=== PATIENT | female | born 1995 | race Caucasian/White ===

== ENCOUNTER 2016-08-02 19:37 | Outpatient (CLI) | payer OTHER ==
[~2016-08-02] VITALS: Ht 157.5 cm; Wt 66.6 kg
[~2016-08-02 19:37] MED LIST: CEPH-443 PO; IBUP-1542
[2016-08-02 20:19] VITALS: BP 101/65; PULSE 90; RESP 18
[2016-08-02] MEDS ORDERED: PRENAT PO (20:21)
[2016-08-02 21:33] LABS: ADD UMIC NO; URINE BILIRUBIN (Dip) NEGATIVE (NEGATIVE); URINE BLOOD (Dip) NEGATIVE (NEGATIVE); URINE COLOR LT. YELLOW (YELLOW); URINE GLUCOSE (Dip) NEGATIVE (NEGATIVE); URINE KETONES (Dip) NEGATIVE (NEGATIVE); URINE LEUKOCYTE ESTERASE (Dip) NEGATIVE (NEGATIVE); URINE NITRITE (Dip) NEGATIVE (NEGATIVE); URINE TOTAL PROTEIN (Dip) NEGATIVE (NEGATIVE); URINE UROBILINOGEN (Dip) 0.2 E.U./dL (0.1-1.0)
--- NOTE | 2016-08-02 22:34 | TRIAGE ---
OB Triage Datetime Report Generated by CPN: 08/02/2016 22:33 Datetime: 08/02/2016 20:15 Time of Arrival: 08/02/2016 19:33 EGA: 20.4 Arrived By: Ambulatory Arrived From: Home Chief Complaint: w/ hx c/s x1 w/ c/o cramping. Denies hx problems this pregnany Movement: Present Contractions: Irregular Time Contractions Began: 08/02/2016 10:00 Contractions: Q5-10 Rupture of Membranes: Denies Vaginal Bleeding: None Vaginal Discharge: Denies Recent Sexual Intercouse: Denies Abdominal Trauma: Not Applicable Patient Complaints: Cramping Time Provider Notified: 08/02/2016 21:05 Provider Notified: Dr Lee Initial Plan: EFM Datetime: 08/02/2016 20:05 Vaginal Exam Membrane Status: Intact Datetime: 08/02/2016 19:56 Maternal Assessment Level of Consciousness: Fully Conscious Headache: Denies Blurred Vision: No Nausea/Vomiting: Denies RUQ Epigastric Pain: Denies Facial Edema: None Labor Evaluation Frequency: placed Monitor Mode: External Resting Tone [place]: Relaxed Heart Rate FHR Baseline Rate: 145 Monitor Mode: Doppler Pain Assessment Pain Scale: 6 Pain Presence: Intermittent Pain Type: Cramping Pain Location: Abdomen
== END 2016-08-02 22:11 | disposition home or self-care (01) ==
LOC: OBT 19:37 → L-D 19:38 → OBT 22:11
PROVIDERS: ATTEND Obstetrics & Gynecology
DX: O60.02 Preterm labor without delivery, second trimester (principal); Z3A.20 20 weeks gestation of pregnancy
CPT/HCPCS: 81003; 87086; Z7500; G0463

== ENCOUNTER 2016-10-14 12:19 | Emergency (ER) | payer OTHER ==
[~2016-10-14] VITALS: Ht 160 cm; Wt 71.5 kg
[~2016-10-14 12:19] MED LIST changes: -CEPH-443 PO; -IBUP-1542; +PRENAT PO
[2016-10-14 12:25] VITALS: Ht 160 cm; Wt 71.5 kg
[2016-10-14] MEDS ORDERED: BEN50 PO (13:29)
[2016-10-14] MEDS ORDERED: HC1C30 TOP (13:29)
--- NOTE | 2016-10-14 13:37 | ERD ---
ER Documentation Chief Complaint Date/Time DATE: 10/14/16 TIME: 13:31 Chief Complaint rash yesterday took benadryl last night, 7months HPI 21-year-old female with history of eczema reports intense itching and burning sensation on the tips of her fingers. Patient is 7 months , stated that she appeared to have a allergic reaction yesterday with hives all over. She took a Benadryl before going to bed last night. This morning, the hives is resolved, but her fingers start to itch. This feels very much like prior eczema flareup. Denies fever or chills. Denies shortness of breath. Denies facial or oral swelling. ROS All systems reviewed and are negative except as per history of present illness. Medications Home Meds Active Scripts Diphenhydramine Hcl* (Benadryl*) 50 Mg Cap, 50 MG PO Q6H Y for ITCHING/RASH, # 30 CAP Prov:TED DAVIS. SPECIAL EDUCATOR 10/14/16 Hydrocortisone* Topical (Hydrocortisone* Topical) 1%-28.35 Gm Cream..g., 1 APPLIC TOP Q6 Y for ITCHING, #1 TUB Prov:TED DAVIS. SPECIAL EDUCATOR 10/14/16 Reported Medications Multivit/Min/Fol Ac/Iron/Pren* ( S*) 1 Tab Tab, 1 TAB PO DAILY, TAB 08/02/16 Allergies Allergies: Coded Allergies: sulfamethoxazole (Unverified Allergy, Mild, Bumps.ITCHING,NAUSEA, 10/14/16) Patient states her mother told her she is allergic to Bactrim when she was a child. patient did not remember the reaction of the med., States her mother told her Bactrim gave her bumps. trimethoprim (Unverified Allergy, Mild, Bumps.ITCHING, NAUSEA, 10/14/16) Patient states her mother told her she is allergic to Bactrim when she was a child. patient did not remember the reaction of the med., States her mother told her Bactrim gave her bumps. PMhx/Soc History of Surgery: Yes (c section) Anesthesia Reaction: No Hx Neurological Disorder: No Hx Respiratory Disorders: No Hx Cardiac Disorders: No Hx Psychiatric Problems: No Hx Miscellaneous Medical Probl: No (eczema) Hx Alcohol Use: No Hx Substance Use: No Hx Tobacco Use: No Smoking Status: Never smoker Physical Exam Vitals Vital Signs Date Time Temp Pulse Resp B/P Pulse Ox O2 Delivery O2 Flow Rate FiO2 10/14/16 12:25 97.8 97 18 142/81 97 Physical Exam General impression: Well-developed, well-nourished. Alert, oriented, in no acute distress Head: Normocephalic, atraumatic. Eyes: PERRL, EOM normal. Sclerae are normal. Conjunctiva not injected. ENT: Nasal mucosa, oral mucosa and oropharynx are normal. Neck: Supple, nontender. No lymphadenopathy. No nuchal rigidity. Respiration: Normal respiratory effort. Lungs clear to auscultate bilaterally. No wheezes, rales or rhonchi. Cardiovascular: Regular rate and rhythm. No murmurs or extra heart sounds. Neuro: Mental status normal, speech normal. [place] grossly intact. Skin: Normal turgor. No hives. Multiple erythematous, scaly lesions noted on the distal fingers, both in the ventral and dorsal aspects. Psych: Normal mood and affect. Procedures/MDM Well-appearing 21-year-old female who is 7 months with history of eczema present ED with eczema this lesions on the distal fingers bilaterally. Patient does not have any signs of anaphylaxis. I doubt cellulitis. Advised patient that Benadryl is safe to take during . Topical steroids must be used cautiously, in small areas for limited time. I will prescribe her with hydrocortisone 1% cream, and have her follow-up with her PCP. Departure Diagnosis: Primary Impression: Eczema Eczema type: other Qualified Code: L30.8 - Other eczema Condition: Good Patient Instructions: Atopic Dermatitis (Eczema) Referrals: [facility] YOU HAVE RECEIVED A MEDICAL SCREENING EXAM AND THE RESULTS INDICATE THAT YOU DO NOT HAVE A CONDITION THAT REQUIRES URGENT TREATMENT IN THE EMERGENCY DEPARTMENT. FURTHER EVALUATION AND TREATMENT OF YOUR CONDITION CAN WAIT UNTIL YOU ARE SEEN IN YOUR DOCTORS OFFICE WITHIN THE NEXT 1-2 DAYS. IT IS YOUR RESPONSIBILITY TO MAKE AN APPOINTMENT FOR FOLOW-UP CARE. IF YOU HAVE A PRIMARY DOCTOR --you should call your primary doctor and schedule an appointment IF YOU DO NOT HAVE A PRIMARY DOCTOR YOU CAN CALL OUR PHYSICIAN REFERRAL HOTLINE AT IF YOU CAN NOT AFFORD TO SEE A PHYSICIAN YOU CAN CHOSE FROM THE FOLLOWING [facility] [address] [facility] [address] [facility] [facility] [address] [facility] [address] [facility] [address] [facility] [facility] [address] Additional Instructions: Call your primary care doctor TOMORROW for an appointment during the next 2-3 days.See the doctor sooner or return here if your condition worsens before your appointment time. TED DAVIS NP Oct 14, 2016 13:36
== END 2016-10-14 14:38 | disposition left against medical advice (07) ==
LOC: FTE 12:19
DX: L30.8 Other specified dermatitis (principal)
CPT/HCPCS: 99283

== ENCOUNTER 2016-10-16 11:37 | Outpatient (CLI) | payer OTHER ==
--- NOTE | 2016-08-03 01:53 | PN ---
Date/Time of Note Date/Time of Note DATE: 08/03/16 TIME: 01:46 OB Subjective Subjective Subjective 21 Year-old [id number] SIUP at 22 4/7 wks presents with a chief complaint of abdominal cramp. She states good movement. She denies nausea, vomiting, shortness of breath, chest pain, and abdominal pain between contractions, headache, visual changes, vaginal bleeding or LOF. OB Objective Objective Objective Physical Exam: General: Patient appears well, alert and oriented, NAD, appropriate mood and affect ABD: gravid, soft, non-tender. Back: No CVA tenderness (B/L) LE: No clubbing, cyanosis, edema, thigh or calf tenderness bilaterally FHT: 138 bpm , moderate variability with acceleration, no deceleration-category I Contractions: occasional uterine irritability OB Assessment/Plan Other plan: 21 Year-old [id number] SIUP at 22 4/7 with occasional ucs however during triage observation, patient states currently does not feel any further cramp - FHR: No sign of metabolic acidosis- Category I - Continuous EFM, toco - U/A, U/C ordered. Nml U/A - Symptoms and sign of labor, preeclampsia, kick count discussed with patient, she voiced understanding. All of her questions answered. - Patient was discharged home in stable condition with the appropriate discharge instructions provided. I would like patient to have close follow-up with her primary ob care physician or outpatient clinic in 1-2 days or return to the ER for worsening symptoms or any other urgent concerns. MAJO BENAVIDES Aug 03, 2016 01:53
[~2016-10-16] VITALS: Ht 157.5 cm; Wt 71.8 kg
[~2016-10-16 11:37] MED LIST changes: +BEN50 PO; +HC1C30 TOP
[2016-10-16 12:08] VITALS: Ht 157.5 cm; Wt 71.8 kg
[2016-10-16 12:09] VITALS: BP 94/52; PULSE 113; RESP 18
--- NOTE | 2016-10-16 13:23 | PN ---
Date/Time of Note Date/Time of Note DATE: 10/16/16 TIME: 13:20 OB Subjective Subjective Subjective Patient is a 2 para 1 at 31+ weeks of gestation who presents with a chief complaint of leaking fluid She reports positive movement, no vaginal bleeding Patient complains of lower pelvic cramping Patient's prior obstetrical history significant for 1 OB Objective Objective Objective heart rate category 1 [place] irregular Vaginal exam cervix closed per nurse HEENT: WNL Heart: Rhythm Normal Lungs: Clear Abdomen: WNL Cervical Dilatation: None Accelerations: Accelerations Present Decelerations: No Decelerations Varibility: Marked Contractions on Admission: None OB Assessment/Plan Other Assessment: Rule out rupture membranes Other plan: We will send for UA Check biophysical profile/BHARGAV KARLEE HURD MD Oct 16, 2016 13:22
--- NOTE | 2016-10-16 13:30 | RADRPT ---
PROCEDURE: OB ultrasound for biophysical profile CLINICAL INDICATION: Biophysical profile. . TECHNIQUE: Multiple sonographic images of the pelvis were obtained. Transabdominal views are obta ined. COMPARISON: 04/24/2016 FINDINGS: Single intrauterine gestation. Presentation: Cephalic. Placenta: Anterior. No evidence of placental abruption. No evidence of placenta previa. breathing movement = 2/2 tone = 2/2 motion = 2/2 BHARGAV = 2/2 BHARGAV = 18.8 cm heart rate: 142 beats per minute IMPRESSION: Single intrauterine gestation. Biophysical profile 02/01 BHARGAV = 18.8 cm RPTAT: AADD .Enzo Navarrete MD, Date Time Electronically viewed and signed by .Enzo Navarrete MD, on 10/16/2016 13:30 .B/
[2016-10-16 14:06] LABS: ADD UMIC NO; URINE BILIRUBIN (Dip) NEGATIVE (NEGATIVE); URINE BLOOD (Dip) NEGATIVE (NEGATIVE); URINE COLOR LT. YELLOW (YELLOW); URINE GLUCOSE (Dip) NEGATIVE (NEGATIVE); URINE KETONES (Dip) NEGATIVE (NEGATIVE); URINE LEUKOCYTE ESTERASE (Dip) NEGATIVE (NEGATIVE); URINE NITRITE (Dip) NEGATIVE (NEGATIVE); URINE TOTAL PROTEIN (Dip) NEGATIVE (NEGATIVE); URINE UROBILINOGEN (Dip) 0.2 E.U./dL (0.1-1.0)
--- NOTE | 2016-10-16 17:31 | TRIAGE ---
OB Triage Datetime Report Generated by CPN: 10/16/2016 17:31 Datetime: 10/16/2016 14:03 Comments: PT SITTING UP Datetime: 10/16/2016 13:39 Stage of : OB Triage Maternal Assessment Level of Consciousness: Fully Conscious Headache: Denies Nausea/Vomiting: Denies RUQ Epigastric Pain: Denies Labor Evaluation Frequency: IRRIT Monitor Mode: External Duration (sec)2399: 10 Quality: Mild Heart Rate FHR Baseline Rate: 135 Monitor Mode: External US Variability: Moderate 6-25 bpm Accelerations: 15X15 Decelerations: None Category: Category I Datetime: 10/16/2016 12:15 Stage of : OB Triage Maternal Assessment Level of Consciousness: Fully Conscious DTR's/Clonus: DTRs 2+; No Clonus Headache: Denies Breath Sounds, Left: Clear and Equal Breath Sounds, Right: Clear and Equal Nausea/Vomiting: Denies RUQ Epigastric Pain: Denies Temperature Route: Oral Labor Evaluation Frequency: 2-IRREG Monitor Mode: External Duration (sec)2399: 10 Quality: Mild Heart Rate FHR Baseline Rate: 135 Monitor Mode: External US Variability: Moderate 6-25 bpm Accelerations: 15X15 Decelerations: None Category: Category I Comments: ROM PLUS DONE Vaginal Exam Dilatation (cms): 0.0 Effacement (%): 0 Station: -3 Exam By: LR RN Vaginal Bleeding: None Cervix, Consistency: Firm Cervix, Position: Anterior Datetime: 10/16/2016 11:39 Time of Arrival: 10/16/2016 11:39 EGA: 31.2 Arrived By: Wheelchair Arrived From: Home Chief Complaint: GUSH OF AMN FLUID Rupture of Membranes: Unsure Vaginal Discharge: Denies Recent Sexual Intercouse: Denies Abdominal Trauma: Not Applicable Initial Plan: NST/EFM/ROM+/CALL DR HURD FOR FURTHER ORDERS Datetime: 08/02/2016 22:03 Stage of : OB Triage Monitor Mode: External Quality: Mild Resting Tone [place]: Relaxed Datetime: 08/02/2016 21:05 Stage of : OB Triage Monitor Mode: External Duration (sec)2399: 5-10sec Quality: Mild Pattern: Normal: <= 5 Contractions in 10 Minutes Resting Tone [place]: Relaxed Datetime: 08/02/2016 20:30 Monitor Mode: External Resting Tone [place]: Relaxed Datetime: 08/02/2016 20:15 EGA: 20.4
== END 2016-10-16 15:15 | disposition home or self-care (01) ==
LOC: OBT 11:37 → L-D 11:37 → OBT 15:15
PROVIDERS: ATTEND Obstetrics & Gynecology
DX: O62.9 Abnormality of forces of labor, unspecified (principal); Z3A.22 22 weeks gestation of pregnancy
CPT/HCPCS: 76818; 81003; 84112; Z7500; G0463

== ENCOUNTER 2016-12-08 05:00 | Inpatient (IN) | payer OTHER ==
[~2016-12-08] VITALS: Ht 157.5 cm; Wt 74.9 kg
[~2016-12-08 05:00] MED LIST changes: -BEN50 PO; -HC1C30 TOP
[2016-12-08 05:20] VITALS: Ht 157.5 cm; Wt 74.9 kg
[2016-12-08 05:30] VITALS: BP 113/68; PULSE 93
[2016-12-08] MEDS ORDERED: LACTATED RINGER'S 1,000 ML IV SCH (05:36)
[2016-12-08 05:55] LABS: ADD SCAN DIFF NO
[2016-12-08] MEDS ORDERED: CARBOPROST 250 MCG INJ IM PRN ×2 (06:00→12:30)
[2016-12-08] MEDS ORDERED: METHYLERGONOVINE 0.2 MG INJ IM PRN ×2 (06:00→12:30)
[2016-12-08] MEDS ORDERED: OXYTOCIN 30 UNITS/LR 500 ML IV PRN ×2 (06:00→12:30)
[2016-12-08] MEDS ORDERED: MISOPROSTOL 200 MCG TAB PR PRN ×2 (06:00→12:30)
[2016-12-08] MEDS ORDERED: CEFAZOLIN 2 GM/50 ML (PMX) 50 ML IV SCH (06:00)
[2016-12-08] MEDS ORDERED: OXYTOCIN 30 UNITS/LR 500 ML IV SCH (06:00)
[2016-12-08 06:01] LABS: BASOPHILS % 0.5 % (0.0-2.0); EOSINOPHILS # 0.4 10^3/ul (0.0-0.5); EOSINOPHILS % 5.3 % (0.0-7.0); HEMATOCRIT 27.8 % (37.0-47.0); LYMPHOCYTES # 2.2 10^3/ul (0.8-2.9); LYMPHOCYTES % 29.8 % (15.0-51.0); MEAN CORPUSCULAR HEMOGLOBIN 27.6 pg (29.0-33.0); MEAN CORPUSCULAR HGB CONC 32.4 g/dl (32.0-37.0); MEAN CORPUSCULAR VOLUME 85.3 fl (82.0-101.0); MEAN PLATELET VOLUME 12.8 fl (7.4-10.4); MONOCYTE # 0.4 10^3/ul (0.3-0.9); MONOCYTES % 5.5 % (0.0-11.0); NEUTROPHIL # 4.3 10^3/ul (1.6-7.5); NEUTROPHILS % 58.1 % (39.0-77.0); PLATELET COUNT 192 10^3/UL (140-415); RED BLOOD COUNT 3.26 10^6/ul (4.20-5.40); WHITE BLOOD COUNT 7.5 10^3/ul (4.8-10.8)
[2016-12-08 06:30] LABS: INR 0.93; PROTIME 12.5 Sec (12.2-14.2)
[2016-12-08 06:31] LABS: PARTIAL THROMBOPLASTIN TIME 26.4 Sec (25.0-35.0)
[2016-12-08] MEDS ORDERED: LACTATED RINGER'S 1,000 ML IV ONE (06:58)
[2016-12-08] MEDS ORDERED: CITRIC ACID/SODIUM CITRATE 15 ML CUP PO ONE (07:00)
[2016-12-08] MEDS ORDERED: ONDANSETRON 4 MG INJ ONE (07:07)
[2016-12-08] MEDS ORDERED: FENTAnyl 50 MCG/ML VIAL ONE (07:07)
[2016-12-08] MEDS ORDERED: morphine SULFATE/PF (10 MG/10 ML) INJ ONE (07:07)
[2016-12-08] MEDS ORDERED: OXYTOCIN 10 UNIT INJ ONE (07:07)
[2016-12-08] MEDS ORDERED: CEFAZOLIN 1 GM INJ ONE (07:07)
[2016-12-08] MEDS ORDERED: LIDOCAINE 2%/EPI 30 ML INJ ONE (07:07)
[2016-12-08] MEDS ORDERED: PHENYLephrine (100 MCG/ML) 5ML SYG ONE (08:20)
[2016-12-08] MEDS ORDERED: ONDANSETRON 4 MG INJ IV PRN ×2 (08:30→10:00)
[2016-12-08] MEDS ORDERED: MEPERIDINE 25 MG INJ IV PRN (08:30)
[2016-12-08] MEDS ORDERED: FENTAnyl 50 MCG/ML VIAL IV PRN ×2 (08:30)
[2016-12-08] MEDS ORDERED: OXYTOCIN 30 UNITS/LR 500 ML IV ONE (08:56)
--- NOTE | 2016-12-08 09:21 | HP ---
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 this 12 history of 2 one previous section one a spontaneous Allergies she is allergic to sulfamethoxazole and trimethoprim both causing nausea and generalized body H Social habit denies smoking drinking Review of system within normal Physical examination 5 feet 2 165 pounds total weight gain during the 39 Temperature 98.3 pulse 93 respiration 18 blood pressure 113/68 Head ears nose and throat negative Neck supple no thyromegaly Lungs clear to P&A Heart normal sinus rhythm no murmur Breast no abnormal palpable mass no nipple retraction or discharge no axillary adenopathy status compatible with the state of the Abdomen fundal height 36 cm from symphysis pubis heart rate category 1 mild contraction Pelvic examination deferred Extremities no edema no varicosities Impression Intrauterine at 39 weeks gestation history one previous section patient was counseled regarding complication of the surgery including but not limited to bowel and bladder injury infection wound hematoma and she is willing to go ahead with this procedure Chief Complaint: 39 weeks history of previous Estimated Due Date: Dec 15, 2016 : 3 Para: 1 Spontaneous : 1 Therapeutic : 0 Care: Good Care Ultrasounds: Normal mid trimester US Obstetrical Complications: None Medical Complications: None Past Family/Social History * Past Medical, Surgical, Family and Obstetric Histories reviewed from chart. Rubella: immune RPR/VDRL: Negative GBS Status: Negative HBsAG: Negative OB Admission Exam Vital Signs Vital Signs Vital Signs Date Time Temp Pulse Resp B/P Pulse Ox O2 Delivery O2 Flow Rate FiO2 12/08/16 05:30 98.3 93 113/68 Room Air Physical Exam HEENT: WNL Heart: Rhythm Normal Lungs: Clear, Equal Abdomen: WNL Extremities: Normal Reflexes: Normal Cervical Dilatation: None Effacement: 0% Station: -2 Heart Rate: 130's Accelerations: Accelerations Present Decelerations: No Decelerations Varibility: Minimum Intensity: Mild Last 72 hours Lab Results CBC & BMP 12/08/16 05:45 OB Assessment/Plan Reason for admission: other (Repeat ) CHARLES GAMBLE MD Dec 08, 2016 09:21
[2016-12-08] MEDS ORDERED: HYDROmorphONE 1 MG/ML SYG IV PRN ×2 (10:00)
[2016-12-08] MEDS ORDERED: NALOXONE (0.4 MG/ML) INJ IV PRN (10:00)
[2016-12-08] MEDS ORDERED: DIPHENHYDRAMINE 50 MG INJ IV PRN (10:00)
--- NOTE | 2016-12-08 10:56 | OPR ---
DATE OF OPERATION: 12/08/2016 PREOPERATIVE DIAGNOSES: 1. Intrauterine at 39 weeks' gestation. 2. History of previous section. POSTOPERATIVE DIAGNOSES: 1. Intrauterine at 39 weeks' gestation. 2. History of previous section. PROCEDURE: Repeat transverse low cervical section. SURGEON: Charles Iglesias MD QUALITY COMPLIANCE COORDINATOR: Forrset Beaver MD ANESTHESIA: Epidural. ANESTHESIOLOGIST: Dr. Schafer FINDINGS: Live baby girl with the 8 and 9. Baby weighed 7 pounds 15 ounces. DETAILS OF THE PROCEDURE: Under satisfactory spinal epidural anesthesia, the patient was prepped an d draped and placed in supine position, tilted to the left. Pfannenstiel incision was made, incisio n carried through the subcutaneous tissue. Bleeders brought under control with electrocautery. Fas zandra incised to the length of the incision. Rectus muscle divided in midline. Peritoneum exposed, e ntered through a transverse incision. Exploration of abdomen, gravid uterus at term, extremely thin serge out lower segment of the uterus. Bladder flap was developed. Transverse incision was made in t he lower segment of the uterus. Amniotic sac ruptured. Clear amniotic fluid noted. Live baby girl was delivered from unengaged vertex. Nasal oropharyngeal suction was performed and b dashawn handed to the team for immediate attention. Patient received 20 units of Pitocin. Brant centa delivered manually intact. Uterine cavity cleaned with wet sponge and drainage established. Uterus closed in 2 layers using Monocryl #1 in continuous fashion. Peritoneal cavity irrigated with warm saline. Sponge, needle and instrument reported to be correct. Abdominal peritoneum closed wi th 2-0 chromic catgut continuously. Rectus muscle approximated with 3 interrupted 2-0 chromic catgu t. Fascia closed with #1 PDS in a continuous fashion. Subcutaneous tissue approximated with interr upted 2-0 chromic catgut. Skin closed with geraldine. Estimated blood loss 600 mL. Urine bag contai serge 200 mL of clear urine. Patient tolerated procedure well, transferred to recovery room in a good condition. Dictated By: CHARLES SINGH/NTS Conf#: [id number] DID#: [id number]
[2016-12-08 12:00] VITALS: BP 123/65; PULSE 98; RESP 18
[2016-12-08] MEDS ORDERED: LANOLIN 7 GM TUBE TOP PRN (12:30)
[2016-12-08] MEDS ORDERED: OXYCODONE/ACETAMINOPHEN (5/325) TAB PO PRN (12:30)
[2016-12-08] MEDS ORDERED: ACETAMINOPHEN/CODEINE #3 TAB PO PRN ×2 (12:30)
[2016-12-08] MEDS: HYDROmorphONE 1 MG/ML SYG IV PRN ×3 (12:48→20:54)
[2016-12-08] MEDS: OXYTOCIN 30 UNITS/LR 500 ML IV SCH ×3 (12:49→21:30)
[2016-12-08] MEDS ORDERED: CEFAZOLIN 1 GM/50 ML (PMX) 50 ML IVPB SCH (16:30)
[2016-12-08 16:33] VITALS: BP 119/65; PULSE 88; RESP 18
[2016-12-08 20:00] VITALS: BP 113/55; PULSE 89; RESP 20
[2016-12-09] VITALS: BP 100/62; PULSE 92; RESP 19
[2016-12-09] MEDS: OXYTOCIN 30 UNITS/LR 500 ML IV SCH ×5 (00:06→16:06)
[2016-12-09] MEDS: HYDROmorphONE 1 MG/ML SYG IV PRN ×2 (01:21→05:03)
[2016-12-09 04:00] VITALS: BP 94/52; PULSE 90; RESP 18
[2016-12-09 07:18] LABS: ADD SCAN DIFF NO
[2016-12-09 07:28] LABS: BASOPHILS % 0.3 % (0.0-2.0); EOSINOPHILS # 0.1 10^3/ul (0.0-0.5); EOSINOPHILS % 1.1 % (0.0-7.0); HEMATOCRIT 27.1 % (37.0-47.0); HEMOGLOBIN 8.8 g/dl (12.0-16.0); LYMPHOCYTES # 1.5 10^3/ul (0.8-2.9); LYMPHOCYTES % 15.6 % (15.0-51.0); MEAN CORPUSCULAR HEMOGLOBIN 27.5 pg (29.0-33.0); MEAN CORPUSCULAR HGB CONC 32.5 g/dl (32.0-37.0); MEAN CORPUSCULAR VOLUME 84.7 fl (82.0-101.0); MONOCYTE # 0.4 10^3/ul (0.3-0.9); MONOCYTES % 4.5 % (0.0-11.0); NEUTROPHIL # 7.6 10^3/ul (1.6-7.5); PLATELET COUNT 186 10^3/UL (140-415); WHITE BLOOD COUNT 9.8 10^3/ul (4.8-10.8)
[2016-12-09 08:30] VITALS: BP 113/73; PULSE 89; RESP 20
[2016-12-09] MEDS: OXYCODONE/ACETAMINOPHEN (5/325) TAB PO PRN ×3 (08:58→20:34)
[2016-12-09] MEDS: SENNA/DOCUSATE NA (8.6MG/50MG) TAB PO SCH ×2 (08:59→20:33)
[2016-12-09] MEDS: IBUPROFEN 600 MG TAB PO SCH ×3 (12:15→23:32)
[2016-12-09 16:13] VITALS: BP 109/64; PULSE 71; RESP 20
--- NOTE | 2016-12-09 16:42 | PN ---
Date/Time of Note Date/Time of Note DATE: 12/09/16 TIME: 16:41 OB Subjective Subjective Subjective Post day 1 Afebrile vital signs stable abdomen soft bowel sounds present lochia moderate incision dry extremities normal ambulation encouraged Laboratory Tests Test 12/09/16 06:45 White Blood Count 9.810^3/ul Red Blood Count 3.2010^6/ul Hemoglobin 8.8g/dl Hematocrit 27.1% Mean Corpuscular Volume 84.7fl Mean Corpuscular Hemoglobin 27.5pg Mean Corpuscular Hemoglobin Concent 32.5g/dl Red Cell Distribution Width 15.0% Platelet Count 48372^3/UL Mean Platelet Volume 13.0fl Neutrophils % 78.0% Lymphocytes % 15.6% Monocytes % 4.5% Eosinophils % 1.1% Basophils % 0.3% Nucleated Red Blood Cells % 0.0/100WBC Neutrophils # 7.610^3/ul Lymphocytes # 1.510^3/ul Monocytes # 0.410^3/ul Eosinophils # 0.110^3/ul Basophils # 0.010^3/ul Nucleated Red Blood Cells # 0.010^3/ul Current Medications Medications (Trade) Dose Ordered Sig/Amandeep Route PRN Reason Start Time Stop Time Status Last Admin Dose Admin Cefazolin Sodium/ Dextrose 50 ml @ 100 mls/hr ONCE IV 12/08/16 06:00 12/08/16 12:12 DC Oxytocin/Lactated Ringer's 500 ml @ 125 mls/hr ONCE IV 12/08/16 06:00 12/08/16 12:12 DC 12/08/16 10:41 Oxytocin/Lactated Ringer's 500 ml @ 0 mls/hr ONCE PRN IV For Hemorrhage Management 12/08/16 06:00 12/08/16 12:12 DC 12/08/16 09:36 Methylergonovine Maleate (Methergine) 0.2 mg ONCE PRN IM VAGINAL BLEEDING 12/08/16 06:00 12/08/16 12:12 DC Carboprost Tromethamine (Hemabate) 250 mcg ONCE PRN IM VAGINAL BLEEDING 12/08/16 06:00 12/08/16 12:12 DC Misoprostol 1000 mcg 1,000 mcg ONCE PRN NM VAGINAL BLEEDING 12/08/16 06:00 12/08/16 12:12 DC Lactated Ringer's 1,000 ml @ 125 mls/hr Q8H IV 12/08/16 05:36 12/08/16 12:12 DC 12/08/16 05:20 Lactated Ringer's (Lr) 1,000 ml @ 1,000 mls/hr Q1H ONCE IV 12/08/16 06:58 12/08/16 07:57 DC Citric Acid/ Sodium Citrate (Bicitra) 30 ml PRE-PROCEDURE ONCE PO 12/08/16 07:00 12/08/16 07:01 DC Fentanyl (Sublimaze) 25 mcg PACU ORDER PRN IV MILD PAIN LEVEL 1-3 12/08/16 08:30 12/08/16 12:12 DC Fentanyl (Sublimaze) 50 mcg PACU ODER PRN IV MODERATE PAIN LEVEL 4-6 12/08/16 08:30 12/08/16 12:13 DC Ondansetron HCl (Zofran Inj) 4 mg PACU ORDER PRN IV NAUSEA AND/OR VOMITING 12/08/16 08:30 12/08/16 12:13 DC 12/08/16 09:57 Meperidine HCl (Demerol) 25 mg PACU ORDER PRN IV POST-OP RIGORS 12/08/16 08:30 12/08/16 12:13 DC Naloxone HCl (Narcan) 0.1 mg Q2M PRN IV FOR RESP RATE 8 OR LESS 12/08/16 10:00 12/09/16 09:59 DC Hydromorphone HCl (Dilaudid) 0.2 mg Q30MIN PRN IV BREAKTHROUGH PAIN 12/08/16 10:00 12/09/16 09:59 DC 12/08/16 11:06 Hydromorphone HCl (Dilaudid) 0.2 mg Q3H PRN IV PAIN LEVEL 1-5 12/08/16 10:00 12/09/16 09:59 DC 12/09/16 05:03 Hydromorphone HCl (Dilaudid) 0.4 mg Q3H PRN IV PAIN LEVEL 6-10 12/08/16 10:00 12/09/16 09:59 DC Diphenhydramine HCl (Benadryl) 25 mg Q6H PRN IV ITCHING 12/08/16 10:00 12/09/16 09:59 DC Ondansetron HCl (Zofran Inj) 4 mg Q6H PRN IV NAUSEA AND/OR VOMITING 12/08/16 10:00 12/09/16 09:59 DC 12/08/16 16:34 Miscellaneous Information (* Miscellaneous Pharmacy Order) Duramorph: 4 mg Epidu... GIVEN XX 12/08/16 10:00 12/08/16 12:12 DC Acetaminophen/ Codeine Phosphate (Tylenol No.3) 1 tab Q4H PRN PO PAIN LEVEL 4-6 12/08/16 12:30 Acetaminophen/ Codeine Phosphate (Tylenol No.3) 2 tab Q4H PRN PO PAIN LEVEL 7-10 12/08/16 12:30 Oxycodone/ Acetaminophen (Percocet (5/ 325)) 1 tab Q4H PRN PO PAIN LEVEL 4-6 12/08/16 12:30 Oxycodone/ Acetaminophen (Percocet (5/ 325)) 2 tab Q4H PRN PO PAIN LEVEL 7-10 12/08/16 12:30 12/09/16 16:13 Ibuprofen (Motrin) 600 mg Q6 PO 12/09/16 12:00 12/09/16 12:15 Simethicone (Mylicon) 160 mg Q8H PRN PO DISTENSION/GAS/BLOATING 12/08/16 12:30 Senna/Docusate Sodium (Senokot-S) 1 tab BID PO 12/09/16 09:00 12/09/16 08:59 Lanolin (Tnn-Y-Uiqkwd) 1 applic BEDSIDE MEDICATION PRN TOP BEDSIDE FOR BILLY TO NIPPLES 12/08/16 12:30 12/08/16 12:47 Diphtheria/ Tetanus/Acell Pertussis 0.5 ml 0.5 ml ONCE ONCE IM* 12/11/16 09:00 12/11/16 09:01 Oxytocin/Lactated Ringer's 500 ml @ 0 mls/hr ONCE PRN IV For Hemorrhage Management 12/08/16 12:30 Methylergonovine Maleate (Methergine) 0.2 mg ONCE PRN IM VAGINAL BLEEDING 12/08/16 12:30 Carboprost Tromethamine (Hemabate) 250 mcg ONCE PRN IM VAGINAL BLEEDING 12/08/16 12:30 Misoprostol 1000 mcg 1,000 mcg ONCE PRN NM VAGINAL BLEEDING 12/08/16 12:30 Cefazolin Sodium 50 ml @ 100 mls/hr ONCE IVPB 12/08/16 16:30 12/08/16 16:59 DC 12/08/16 16:33 Oxytocin/Lactated Ringer's 500 ml @ 125 mls/hr Q4H IV 12/08/16 12:06 12/08/16 21:30 Cefazolin Sodium (Ancef) 1 gm STK-MED ONCE .ROUTE 12/08/16 07:07 12/09/16 09:39 DC Lidocaine/ Epinephrine (Xylocaine 2%/ Epi) 30 ml STK-MED ONCE .ROUTE 12/08/16 07:07 12/09/16 09:39 DC Fentanyl (Sublimaze) 100 mcg STK-MED ONCE .ROUTE 12/08/16 07:07 12/09/16 09:39 DC Morphine Sulfate (Duramorph) 10 mg STK-MED ONCE .ROUTE 12/08/16 07:07 12/09/16 09:39 DC Ondansetron HCl (Zofran Inj) 4 mg STK-MED ONCE .ROUTE 12/08/16 07:07 12/09/16 09:39 DC Oxytocin (Oxytocin) 10 units STK-MED ONCE .ROUTE 12/08/16 07:07 12/09/16 09:39 DC Phenylephrine HCl 500 mcg 500 mcg STK-MED ONCE .ROUTE 12/08/16 08:20 12/09/16 09:52 DC Oxytocin/Lactated Ringer's 500 ml @ ud STK-MED ONCE IV 12/08/16 08:56 12/09/16 10:01 CHARLES WADE MD Dec 09, 2016 16:42
[2016-12-09 20:00] VITALS: BP 122/74; PULSE 66; RESP 18
[2016-12-10] MEDS: OXYCODONE/ACETAMINOPHEN (5/325) TAB PO PRN ×3 (02:24→19:43)
[2016-12-10 04:00] VITALS: BP 109/56; PULSE 85; RESP 20
[2016-12-10] MEDS: IBUPROFEN 600 MG TAB PO SCH ×4 (05:32→23:44)
[2016-12-10 08:10] VITALS: BP 104/56; PULSE 92; RESP 18
[2016-12-10] MEDS: SENNA/DOCUSATE NA (8.6MG/50MG) TAB PO SCH ×2 (08:10→20:55)
[2016-12-10] MEDS ORDERED: NA PHOSPHATE/BIPHOS 133 ML ENEMA PR ONE (12:30)
--- NOTE | 2016-12-10 12:33 | PN ---
Date/Time of Note Date/Time of Note DATE: 12/10/16 TIME: 12:31 OB Subjective Subjective Subjective Afebrile vital signs are stable abdomen soft incision dry bowel sounds present no bowel movement lochia moderate extremity normal ambulation encouraged . CHARLES GAMBLE MD Dec 10, 2016 12:33
[2016-12-10] MEDS: ACYCLOVIR 400 MG TAB PO SCH ×2 (14:08→20:55)
[2016-12-10 16:30] VITALS: BP 101/56; PULSE 91; RESP 16
[2016-12-10 20:00] VITALS: BP 121/64; PULSE 97; RESP 18
[2016-12-11 04:00] VITALS: BP 130/73; PULSE 98; RESP 19
[2016-12-11] MEDS: IBUPROFEN 600 MG TAB PO SCH ×2 (05:48→12:09)
[2016-12-11 07:50] VITALS: BP 108/68; PULSE 90; RESP 17
[2016-12-11] MEDS: ACYCLOVIR 400 MG TAB PO SCH (08:08)
[2016-12-11] MEDS: OXYCODONE/ACETAMINOPHEN (5/325) TAB PO PRN (08:09)
[2016-12-11] MEDS: SENNA/DOCUSATE NA (8.6MG/50MG) TAB PO SCH (08:09)
[2016-12-11] MEDS ORDERED: DIPHTH/TET/ACEL PERTUSS (ADULT) 0.5 ML VIAL IM* ONE (09:00)
--- NOTE | 2016-12-11 11:02 | PD.PPDC ---
DIALYSIS NURSE Discharge Instruction Condition Patient Condition: Good Diet Diet: Resume Regular Diet Activity/Restrictions Activity: Normal Activity May Shower Wound/Drain Care Instructions Wound/Drain Care Instructions: Remove Steri Strips in 1 week Follow-up Follow-up with Physician: 4, Day/Days Provider Information: Appointment clinic in 4 days to RAOUL chandler Return to clinic for DIRECTOR BUILDING Instructions: Fever greater than 101 Chills Worsening abdominal pain Excessive Vaginal Bleeding More than 2 pads per hour Unable to tolerate diet OB Instructions: Breast Tenderness Depression Blurried Vision Headache Surgical Instructions: Incisional Drainage Incisional Redness CHARLES GAMBLE MD Dec 11, 2016 11:02
--- NOTE | 2016-12-11 11:05 | DS ---
Date/Time of Note Date/Time of Note DATE: 12/11/16 TIME: 11:03 Discharge Summary Admission/Discharge Info Admit Date/Time Dec 08, 2016 at 05:00 Discharge Date/Time December 11, 2016 at 1155 Final Diagnosis Post repeat date 3 Patient Condition: Good Procedures Repeat Hx of Present Illness 39 weeks history of previous Hospital Course Satisfactory uneventful Home Meds Reported Medications Multivit/Min/Fol Ac/Iron/Pren* ( S*) 1 Tab Tab, 1 TAB PO DAILY, TAB 2 Follow-up Plan Appointment clinic in 4 days to discontinue geraldine Primary Care Provider [facility] Time spent on discharge: < 30 minutes CHARLES GAMBLE MD Dec 11, 2016 11:05
== END 2016-12-11 17:25 | disposition home or self-care (01) | DRG 766 ==
LOC: L-D 05:00 → PP1 11:53
PROVIDERS: ADMIT Obstetrics & Gynecology; ATTEND Obstetrics & Gynecology
PROC: 10D00Z1 Extraction of Products of Conception, Low, Open Approach (ICD-10-PCS; principal; 2016-12-08 07:30)
DX: O34.211 Maternal care for low transverse scar from previous cesarean delivery (principal); Z87.59 Personal history of other complications of pregnancy, childbirth and the puerperium; Z3A.39 39 weeks gestation of pregnancy; Z37.0 Single live birth
CPT/HCPCS: 85025; 85610; 85730; 86592; 86850; 86900; 86901; 87340; 90715; 99464; J0690; J1170; J2274; J2370; J2405; J2590; J3010; J7120

== ENCOUNTER 2017-03-26 12:27 | Emergency (ER) | payer OTHER ==
[~2017-03-26] VITALS: Ht 157.5 cm; Wt 98.2 kg
[2017-03-26 12:41] VITALS: Ht 157.5 cm; Wt 98.2 kg
[2017-03-26] MEDS ORDERED: ALBU8.5H3 INH (13:16)
[2017-03-26] MEDS ORDERED: UDROBDM PO (13:17)
[2017-03-26] MEDS ORDERED: IBUP-1542 PO (13:17)
[2017-03-26] MEDS ORDERED: PSEU30TA38 PO (13:19)
--- NOTE | 2017-03-26 13:31 | ERD ---
ER Documentation Chief Complaint Date/Time DATE: 03/26/17 TIME: 13:28 Chief Complaint Pt with ST X 5-6 days. Took dayquil today @ 1245. HPI This is a 21-year-old female presents the emergency department today complaining of sore throat, cough, wheezing, nasal congestion for the past several days. States that her son had similar symptoms earlier in the week. States that she did have history of asthma when she was a child. Denies any fevers or chills currently. ROS All systems reviewed and are negative except as per history of present illness. Medications Home Meds Active Scripts Pseudoephedrine Hcl* (Pseudoephedrine Hcl*) 30 Mg Tablet, 30 MG PO Q6 Y for CONGESTION, #28 TAB Prov:ISAMAR LOPEZ PA-C 03/26/17 Ibuprofen* (Motrin*) 600 Mg Tab, 600 MG PO Q6, #30 TAB Prov:ISAMAR LOPEZ PA-C 03/26/17 Guaifenesin-Dextromethorphan* (Robitussin* DM) 100MG/10MG/5ML Syrup, 10 ML PO Q4H Y for COUGH for 5 Days, ML Prov:ISAMAR LOPEZ PA-C 03/26/17 Albuterol Sulfate* (Proair HFA*) 8.5 Gm Hfa.aer.ad, 2 PUFF INH Q4, #1 INHALER Prov:ISAMAR LOPEZ PA-C 03/26/17 Reported Medications Multivit/Min/Fol Ac/Iron/Pren* ( S*) 1 Tab Tab, 1 TAB PO DAILY, TAB 08/02/16 Allergies Allergies: Coded Allergies: sulfamethoxazole (Unverified Allergy, Mild, Bumps.ITCHING,NAUSEA, 12/08/16) Patient states her mother told her she is allergic to Bactrim when she was a child. patient did not remember the reaction of the med., States her mother told her Bactrim gave her bumps. trimethoprim (Unverified Allergy, Mild, Bumps.ITCHING, NAUSEA, 12/08/16) Patient states her mother told her she is allergic to Bactrim when she was a child. patient did not remember the reaction of the med., States her mother told her Bactrim gave her bumps. PMhx/Soc History of Surgery: Yes (c section) Anesthesia Reaction: No Hx Neurological Disorder: No Hx Respiratory Disorders: No Hx Cardiac Disorders: No Hx Psychiatric Problems: No Hx Miscellaneous Medical Probl: No (eczema) Hx Alcohol Use: No Hx Substance Use: No Hx Tobacco Use: No Physical Exam Vitals Vital Signs Date Time Temp Pulse Resp B/P Pulse Ox O2 Delivery O2 Flow Rate FiO2 03/26/17 12:41 98.2 69 18 119/84 98 Physical Exam Const: NAD Head: Atraumatic Eyes: Normal Conjunctiva ENT: Ears TM Normal. Nose mild clear drainage. Throat no erythema no exudate no vesicles Neck: Full range of motion..~ No meningismus. Resp: Clear to auscultation bilaterally Cardio: Regular rate and rhythm, no murmurs Abd: Soft, non tender, non distended. Normal bowel sounds Skin: No petechiae or rashes Back: No midline or flank tenderness Ext: No cyanosis, or edema Neur: Awake and alert Psych: Normal Mood and Affect Procedures/MDM This is a 21-year-old female who presents the emergency department today with signs and symptoms consistent with URI likely viral. Patient is afebrile and otherwise well-appearing here in the emergency department. Her oxygen saturation is 98%. I do not feel that she requires a chest x-ray at this time. Low suspicion for pneumonia, PE, abscess, pleural effusion. I have low suspicion for strep pharyngitis, peritonsillar abscess, retropharyngeal abscess , otitis media, PNA, sinusitis, abscess, meningitis, sepsis, or other acute infectious bacterial process. I do not feel that the patient would benefit from an influenza swab at this time given that she has had symptoms for the past several days. Patient will be given a prescription for Motrin, Sudafed, Robitussin and an albuterol inhaler. At this time the patient is stable for discharge and outpatient management. They should follow up with their PCP in the next 1-2. They may return to the emergency department sooner if symptoms persist or worsen. Patient understood and agreed with the plan. Departure Diagnosis: Primary Impression: URI (upper respiratory infection) URI type: unspecified URI Qualified Code: J06.9 - Upper respiratory tract infection, unspecified type Condition: Fair Patient Instructions: Preventing Common Respiratory Infections Additional Instructions: Call your primary care doctor TOMORROW for an appointment during the next 1-2 days.See the doctor sooner or return here if your condition worsens before your appointment time. Take Tylenol or Motrin for sore throat or pain. Use inhaler to help with wheezing and cough. Take Robitussin for cough Take Sudafed as prescribed ISAMAR LOPEZ PA-C Mar 26, 2017 13:31
== END 2017-03-26 13:46 | disposition home or self-care (01) ==
LOC: FTE 12:27
DX: J06.9 Acute upper respiratory infection, unspecified (principal)
CPT/HCPCS: 99283

== ENCOUNTER 2017-12-19 03:24 | Observation (INO) | END 2017-12-20 09:45 | disposition home or self-care (01) ==